=== PATIENT | male | born 1980 ===

== ENCOUNTER 2024-03-09 16:37 | Emergency (ER) | payer SELFPAY ==
[2024-03-09] MEDS ORDERED: predniSONE 20 MG TAB ONE (17:00)
[2024-03-09] MEDS ORDERED: Famotidine 20 MG TAB ONE (17:00)
[2024-03-09] MEDS ORDERED: Loratadine 10 MG TAB ONE (17:50)
== END 2024-03-09 18:16 | disposition home or self-care (01) ==
LOC: ERS 16:37
DX: T78.1XXA Other adverse food reactions, not elsewhere classified, initial encounter (principal); R21 Rash and other nonspecific skin eruption; F17.210 Nicotine dependence, cigarettes, uncomplicated
CPT/HCPCS: 99282; J7512